=== PATIENT | male | born 1995 | race Caucasian/White ===

== ENCOUNTER 2017-08-30 20:57 | Emergency (ER) | payer SELFPAY, OTHER ==
[2017-08-31] MEDS: LORAZEPAM 0.5 MG TAB PO (01:31)
== END 2017-08-31 03:29 | disposition home or self-care (01) ==
LOC: FTE 20:57
DX: R07.9 Chest pain, unspecified (principal); R00.2 Palpitations; I10 Essential (primary) hypertension; F17.210 Nicotine dependence, cigarettes, uncomplicated
CPT/HCPCS: 71045; 93005; 99284-25